=== PATIENT | male | born 1940 | race Caucasian/White ===

== ENCOUNTER 2018-12-01 04:14 | Inpatient (IN) ==
[2018-12-01] MEDS ORDERED: ASPIRIN PO ONE (04:29)
[2018-12-01] MEDS ORDERED: CARDIZEM IV ONE ×2 (04:29→06:00)
[2018-12-01] MEDS ORDERED: ASPIRIN ONE (04:31)
--- NOTE | 2018-12-01 04:41 | PROVIDER DOCUMENTATION ---
HPI-Chest Pain - General Chief Complaint: Chest Pain Stated Complaint: CHEST PAIN-HISTORY OF HEART PROBLEM Time Seen by Provider: 12/01/18 04:21 Source: patient, family Allergies/Adverse Reactions: Patient Allergies Allergy/AdvReac Type Severity Reaction Status Date / Time rosuvastatin calcium * AdvReac Severe Unknown Verified 12/01/18 04:45 [From Crestor] Mhverhi-Dlk-Jsc Reductase AdvReac Unknown Verified 12/01/18 04:45 Inhibitor Home Medications: Home Medication List Medication Instructions Recorded Confirmed Last Taken Type Aspirin 81 mg PO QPM 04/06/16 12/01/18 08/03/17 History [place]-3 Fatty Acids/Fish Oil 1 cap PO BID 04/06/16 12/01/18 08/05/17 History [[place] 3 1,000 mg Softgel] Apixaban [Eliquis] 5 mg PO BID 07/11/17 12/01/18 08/03/17 History Albuterol Sulfate Inhaler 2 puff INH Q6HR PRN 12/01/18 12/01/18 Unknown History [Ventolin Hfa] Amlodipine Besylate 1 tab PO QAM 12/01/18 12/01/18 Unknown History Fluticasone 50 Mcg Nasal [place] 1 spray INTRANASAL QAM 12/01/18 12/01/18 Unknown History [Flonase] Hydrochlorothiazide 1 tab PO QAM 12/01/18 12/01/18 Unknown History Losartan Potassium 1 tab PO BID 12/01/18 12/01/18 Unknown History Naproxen Sodium [Aleve] 1 tab PO BID PRN 12/01/18 12/01/18 Unknown History Nitroglycerin Sl [Nitroglycerin] 1 tab SUBLINGUAL DIRECTED PRN 12/01/18 12/01/18 Unknown History - History of Present Illness-CP Nature of Presenting Problem: Patient has history of paroxysmal A-Fib, though usually in NSR, takes Eliquis BID prescribed by Dr. Roy, notes acute onset of left sided "burning" chest pain on waking a little over an hour ago, followed by N/V x 1, sweating and then palpitations. CP lasted a few minutes and is gone at this time. Patient checked HR/BP and found HR to be in the 140s-150s, so he assumed he was back in AFIB and came her for treatment. Has had similar problems in the past with AFIB. Location: reports: substernal Chest Pain Radiation: reports: no radiation Quality of Pain: reports: burning Severity in ED: moderate Onset/Duration: 1 hour ago Timing: gone now, resolved prior to arrival (lasted a few minutes) Context/Activities at Onset: reports: sleep Modifying Factors: improves with: nothing Associated Symptoms: reports: diaphoresis, nausea, vomiting Nitro Today/Relief: no nitro taken today Aspirin Treatment Today: no aspirin today Prior Chest Pain/Cardiac Workup: reports: cardiac cath Similar Symptoms Previously?: Yes (with AFIB) Recently Seen Here or By Another Healthcare Provider: No (Sees Dr. Calvin Roy and PCP is Art) Review of Systems - Adult - REVIEW OF SYSTEMS - ADULT Constitutional: reports: no symptoms reported Eyes: reports: no symptoms reported Ears, Nose, Mouth & Throat: reports: no symptoms reported Cardiovascular: reports: see HPI, chest pain, irregular heart rate, palpitations . denies: edema, heart murmur, orthopnea, poor circulation, PND, syncope Respiratory: reports: no symptoms reported Gastrointestinal: reports: no symptoms reported Genitourinary: reports: no symptoms reported Musculoskeletal: reports: other (fell a few weeks ago, injuring his left calf/LE . States has been seen by Med/Surg clinic and told was a bruise/strain/cellulitis, given antibiotics and told it was not a blood clot. States still hurts, but not nearly as bad.) Integumentary: reports: no symptoms reported Neurological: reports: no symptoms reported Psychiatric: reports: no symptoms reported Endocrine: reports: no symptoms reported Hematologic/Lymphatic: reports: no symptoms reported Allergic/Immunologic: reports: no symptoms reported All Other Systems: Reviewed and Negative Past History - Adult - PAST MEDICAL HISTORY-ADULT Review of Records: reports: Old Records Reviewed, Nursing Assessment Review, Medications Reviewed, Social history reviewed & non-contributory. Major Childhood Illnesses: reports: denies history Cardiovascular: reports: cardiac disease, A-Fib, HTN, hyperlipidemia Respiratory: reports: COPD Gastrointestinal: reports: other (diverticulitis) Obstetrical/Gynecological: reports: denies history Genitourinary: reports: denies history Musculoskeletal: reports: denies history Neurological: reports: denies history Endocrine/Immune: reports: denies history Other Conditions: reports: other cancer (skin) - PRIOR SURGERIES/PROCEDURES Surgical/Procedure History: reports: appendectomy - PRIOR HOSPITALIZATIONS Prior Hospitalizations: reports: for similar symptoms - IMMUNIZATION STATUS Childhood Immunizations: See Nurse Assessment Flu Vaccine: See Nurse Assessment - FAMILY HISTORY Family History: reviewed, not pertinent - SOCIAL HISTORY Smoking: quit less than 1 year Substance Use: none/never Alcohol Use Frequency: rarely Living Situation: family Physical Exam-General - PHYSICAL EXAM-ADULT Initial Vital Signs Reviewed: Yes (Tachycardic, otherwise VSSAF) - CONSTITUTIONAL General Appearance: appears well, alert, no apparent distress - EYES Eyes: PERRL/EOMI, pink conjunctivae - HEAD, EARS, NOSE, MOUTH & THROAT HENMT: normocephalic/atraumatic, moist mucous membranes, normal ENT inspection - NECK Neck: non-tender, full range of motion, supple, normal inspection - RESPIRATORY Respiratory: chest non-tender, lungs clear, normal breath sounds, no pleuratic chest pain, no respiratory distress, no accessory muscle use - CARDIOVASCULAR Cardiovascular: normal peripheral pulses, no edema, no gallop, no JVD, no murmur , tachycardia, irregularly irregular - GASTROINTESTINAL (ABDOMEN) Abdominal Exam: normal bowel sounds, non tender, soft, no organomegaly, no pulsatile mass - LYMPHATIC Lymphatic: no adenopathy - MUSCULOSKELETAL Back Exam: normal inspection, no vertebral tenderness Extremity: normal range of motion, normal gait, normal capillary refill, calf tenderness (left side), pedal edema, swelling (2+ on right, 3+ on left). negative: deformity, erythema, inflammation, joint effusion - SKIN Integumentary: normal color, normal turgor, warm/dry - NEUROLOGIC Neurologic: trial management associate II-XII nml as tested, grossly normal, no motor/sensory deficits - PSYCHIATRIC Psych/Mental Status: normal mood/affect, normal thought content, normal thought process, oriented x 3 - HEART Score HEART Score: History: Slightly Suspicious HEART Score: ECG: Non-Specific Repolarization Disturbance/LBBB/PM HEART Score: Age: > or = 65 Years HEART Score: Risk Factors for Atherosclerotic Disease: > or = 3 Risk Factors or History of Atherosclerotic Disease HEART Score: Troponin: < or = Normal Limit (MOD Risk of MACE) Total HEART Score:: 5 Progress - PLAN OF CARE/RESULTS Progress/Plan/Lab Results: Vital Signs - 8 hr 12/01/18 04:19 12/01/18 04:24 12/01/18 04:32 Temperature 98.2 F Pulse Rate 136 H 147 H 132 H Respiratory Rate 14 17 14 Blood Pressure 128/92 128/92 111/90 O2 Sat by Pulse Oximetry 97 96 97 12/01/18 04:47 12/01/18 05:02 12/01/18 05:19 Temperature Pulse Rate 152 H 96 H 77 Respiratory Rate 26 H 17 Blood Pressure 107/83 114/73 O2 Sat by Pulse Oximetry 98 92 L Laboratory Results - last 24 hr 12/01/18 12/01/18 12/01/18 04:36 04:36 04:36 WBC 6.92 RBC 4.69 L Hgb 13.4 L Hct 41.3 L MCV 88.1 MCH 28.6 MCHC 32.4 L RDW Std Deviation 16.9 H Plt Count 197 MPV 11.8 H Immature Gran % (Auto) 0.3 Neut % (Auto) 56.8 Lymph % (Auto) 27.2 [place] % (Auto) 11.6 H Eos % (Auto) 4.0 Baso % (Auto) 0.1 Immature Gran # (Auto) 0.02 Neut # (Auto) 3.93 Lymph # (Auto) 1.88 [place] # (Auto) 0.80 H Eos # (Auto) 0.28 Baso # (Auto) 0.01 PT INR PTT (Actin FS) Sodium 139 Potassium 4.0 Chloride 100 Carbon Dioxide 32 Anion Gap 7 BUN 23 H Creatinine 1.1 Estimated GFR/1.73 m2 > 60 BUN/Creatinine Ratio 21 Glucose 126 H Calculated Osmolality 283 Calcium 9.4 Total Bilirubin 0.40 AST 46 H ALT 56 H Alkaline Phosphatase 85 Creatine Kinase 112 Troponin T Etj-G-Mpbgwgrxfnj Pept Total Protein 6.8 Albumin 4.4 Globulin 2.4 Albumin/Globulin Ratio 1.8 TSH 6.19 H 12/01/18 12/01/18 12/01/18 04:36 04:36 04:36 WBC RBC Hgb Hct MCV MCH MCHC RDW Std Deviation Plt Count MPV Immature Gran % (Auto) Neut % (Auto) Lymph % (Auto) [place] % (Auto) Eos % (Auto) Baso % (Auto) Immature Gran # (Auto) Neut # (Auto) Lymph # (Auto) [place] # (Auto) Eos # (Auto) Baso # (Auto) PT 14.7 INR 1.07 PTT (Actin FS) 32.6 Sodium Potassium Chloride Carbon Dioxide Anion Gap BUN Creatinine Estimated GFR/1.73 m2 BUN/Creatinine Ratio Glucose Calculated Osmolality Calcium Total Bilirubin AST ALT Alkaline Phosphatase Creatine Kinase Troponin T < 0.010 Tgh-G-Bzmtyudbeif Pept 35 Total Protein Albumin Globulin Albumin/Globulin Ratio TSH Orders Category Date Time Status Nursing- Obtain EKG once Care 12/01/18 04:50 Active Saline Loc NOW Care 12/01/18 04:30 Active CHEST-PORTABLE [RAD] Stat Exams 12/01/18 04:30 Taken CBC WITH ELECTRONIC DIFF [HEME] Stat Lab 12/01/18 04:36 Completed CK PROFILE [SP CHEM] Stat Lab 12/01/18 04:36 Completed CK PROFILE [SP CHEM] Stat Lab 12/01/18 06:30 Uncollected COMPREHENSIVE METABOLIC PANEL [CHEM] Stat Lab 12/01/18 04:36 Completed PRO B-NATRIURETIC PEPTIDE Stat Lab 12/01/18 04:36 Completed PROTIME WITH INR [COAG] Stat Lab 12/01/18 04:36 Completed PTT [COAG] Stat Lab 12/01/18 04:36 Completed TROPONIN T Stat Lab 12/01/18 04:36 Completed TROPONIN T Stat Lab 12/01/18 06:30 Uncollected TSH Stat Lab 12/01/18 04:36 Completed 0.9% Sodium Chloride Inj [Ns] 100 ml Med 12/01/18 06:15 Active Diltiazem [Cardizem] 125 mg IV As Directed mls/hr Aspirin Med 12/01/18 04:31 Discontinued 325 mg .ROUTE .STK-MED ONE Aspirin Med 12/01/18 04:29 Discontinued 325 mg PO NOW ONE Digoxin [Lanoxin] Med 12/01/18 05:11 Discontinued 250 microgm IV NOW ONE Diltiazem [Cardizem] Med 12/01/18 06:00 Discontinued 20 mg IV NOW ONE Diltiazem [Cardizem] Med 12/01/18 04:29 Discontinued 25 mg IV NOW ONE EKG [EKG] Stat Ther 12/01/18 04:19 Ordered EKG [EKG] Stat Ther 12/01/18 06:30 Ordered Result Diagrams: 12/01/18 04:36 12/01/18 04:36 - REASSESSMENT Reassessment #1 Time Reassessed: 04:48 Status: unchanged (Old chart and prior EKG reviewed. Last cardiology consultation/evaluation was Jun 2017, in house by Dr. Potts. Will check second CE and EKG at 2 hours) Reassessment #2 Time Reassessed: 06:05 Status: unchanged (Patient did not respond to first dose of cardizem IV and IV digoxin. Also given ASA po. Will re-bolus cardizem and start drip and admit) - EKG 1 Time of EKG reading by physician:: 04:24 EKG Read and Signed by:: Rangel Golden EKG Interpretation (*Must complete 3 of following elements*): Abnormal Rate: 138 Rhythm: Afib with RVR [place]: normal ST Wave: non-specific ST changes Prior EKG Comparison: unchanged from prior (07/12/17) - XRAY 1 XRAY Study: Chest Impression: Abnormal (Read by me at 0545, CM with increased vascular markings. Elevated left hemidaiphragm) - CONSULTS/PCP/HOSPITALIST Notification #1 *Consult/PCP/Hospitalist*: Emmett Time Discussed: 06:06 Consult Disposition: Will see in ED Departure - Departure Date of Disposition Decision: 12/01/18 Time of Disposition Decision: 06:06 DIAGNOSIS: Substernal precordial chest pain, Paroxysmal atrial fibrillation with RVR Disposition: ADMITTED INPATIENT 09 Certified Medical Emergency: Emergent Condition: Fair Referrals and Follow-Ups: Qasim Cordova DO [Primary Care Provider] - - Critical Care Note This patient required my direct & personal management of CC.: Yes Total Time (mins): 40 ([facility] system in peril) Critical Care Statement: This patient required my direct personal management to treat or rule out processes, the absence of which, could potentiallly result in sudden, clinically significant life or limb threatening deterioration. Attestation - Physician/ NAN Attestation Patient care was provided by Advanced Practice Provider:: No The physician spent face to face time with patient:: Yes Advanced Practice Provider documentation review:: Supervising physician onsite and consulted in the evaluation and care of this patient. The physician did have a face to face encounter with the patient.
[2018-12-01 04:56] LABS: BASO# 0.01 X1000 (0.0-0.2); BASO% 0.1 % (0.0-0.8); EOS# 0.28 X1000 (0.0-0.7); HEMATOCRIT 41.3 % (42.0-52.0); HEMOGLOBIN 13.4 g/dL (14.0-18.0); IMM GRAN# 0.02 X1000 (0.0-0.04); IMM GRAN% 0.3 % (0.0-0.5); LYMPH# 1.88 X1000 (1.2-3.4); LYMPH% 27.2 % (20.5-51.1); MCH 28.6 PG (27-31); MCHC 32.4 g/dL (33-37); MCV 88.1 FL (81-99); MONO% 11.6 % (1.7-9.3); MPV 11.8 FL (7.4-10.4); NEUT# 3.93 X1000 (1.4-6.5); NEUT% 56.8 % (42.2-75.2); PLT 197 X1000 (130-400); RBC 4.69 XMIL (4.7-6.1); RDW 16.9 % (11.5-14.5); WBC 6.92 X1000 (4.8-10.8)
[2018-12-01 05:05] LABS: INR 1.07; PROTIME 14.7 Seconds (11.0-16.0)
[2018-12-01 05:06] LABS: PTT 32.6 Seconds (22.3-41.8)
[2018-12-01] MEDS ORDERED: LANOXIN IV ONE (05:11)
[2018-12-01 05:17] LABS: AGAP 7; ALB/GLOB RATIO 1.8; ALBUMIN 4.4 g/dL (3.5-5.0); ALKALINE PHOSPHATASE 85 U/L (32-122); BUN 23 mg/dL (8-22); CALCIUM 9.4 mg/dL (8.8-10.2); CHLORIDE 100 mmol/L (98-107); CK PROFILE 112 U/L (24-204); COSMO 283; CREATININE 1.1 mg/dL (0.7-1.2); ESTIMATED GFR > 60; GLUCOSE 126 mg/dL (70-104); GOT 46 U/L (10-34); GPT 56 U/L (10-44); SODIUM 139 mmol/L (136-145); TCO2 32 mmol/L (25-35); TOTAL PROTEIN 6.8 g/dL (6.3-8.3)
[2018-12-01] MEDS ORDERED: CARDIZEM 125 MG in NS 100 ML IV SCH (06:15)
--- NOTE | 2018-12-01 06:37 | ED EKG INTERP ---
EKG Interpretation - EKG Time of EKG reading by physician:: 06:35 EKG Read and Signed by:: Rangel Golden EKG Interpretation (*Must complete 3 of following elements*): Abnormal Rate: 78 Rhythm: Afib, rate controlled [place]: normal QRS: other (low voltage, early transition) ST Wave: normal Prior EKG Comparison: changes noted (improved from earlier) Attestation - Physician/ NAN Attestation Patient care was provided by Advanced Practice Provider:: No The physician spent face to face time with patient:: Yes Advanced Practice Provider documentation review:: Supervising physician onsite and consulted in the evaluation and care of this patient. The physician did have a face to face encounter with the patient.
--- NOTE | 2018-12-01 06:41 | Diag Imaging Result Doc PS360 ---
CHEST-PORTABLE - 12/01/2018 INDICATION: chest pain COMPARISON: 07/13/2017 FINDINGS: There is faint infiltrate or atelectasis at the left hilum, stable from prior exams. Stable left hemidiaphragm elevation with some adjacent atelectasis. The right lung remains clear. Heart size and pulmonary vascularity is normal. IMPRESSION: Nonspecific findings. No change from prior. Electronically signed by Benny Mchugh 12/01/2018 6:39 AM
--- NOTE | 2018-12-01 07:05 | EKG Report ---
Test Performed on : 12/01/2018 06:28:13 AM Test Reason : Repeat at 0630 for CP Blood Pressure : / mmHG Vent. Rate : 078 BPM Atrial Rate : 063 BPM P-R Int : 000 ms QRS Dur : 090 ms QT Int : 366 ms P-R-T Axes : 000 -20 014 degrees QTc Int : 417 ms Atrial fibrillation. Low voltage QRS Abnormal ECG When compared with ECG of 01-DEC-2018 04:19, (Unconfirmed) Vent. rate has decreased BY 60 BPM Confirmed by Jordana POWERS, Eric Simeon ([id number]) on 12/01/2018 3:27:36 PM
--- NOTE | 2018-12-01 07:10 | EKG Report ---
Test Performed on : 12/01/2018 04:19:59 AM Test Reason : chest pain Blood Pressure : / mmHG Vent. Rate : 138 BPM Atrial Rate : 101 BPM P-R Int : 000 ms QRS Dur : 088 ms QT Int : 308 ms P-R-T Axes : 000 000 022 degrees QTc Int : 466 ms Atrial fibrillation. with rapid ventricular response. Nonspecific ST abnormality Abnormal ECG When compared with ECG of 12-JUL-2017 01:36, No significant change was found Confirmed by Jordana POWERS, Eric Simeon ([id number]) on 12/01/2018 3:27:35 PM
[2018-12-01] MEDS ORDERED: ZOFRAN IV PRN (08:22)
[2018-12-01] MEDS ORDERED: TYLENOL PO PRN (08:22)
[2018-12-01] MEDS ORDERED: ASPIRIN PO SCH ×2 (09:00→21:00)
[2018-12-01 09:23] LABS: AGAP 10; BUN 21 mg/dL (8-22); CALCIUM 9.4 mg/dL (8.8-10.2); CHLORIDE 102 mmol/L (98-107); COSMO 279; ESTIMATED GFR > 60; GLUCOSE 133 mg/dL (70-104); POTASSIUM 4.2 mmol/L (3.5-5.1); SODIUM 137 mmol/L (136-145); TCO2 25 mmol/L (25-35)
[2018-12-01] MEDS ORDERED: VENTOLIN HFA INH PRN (09:31)
[2018-12-01] MEDS ORDERED: NITROGLYCERIN SL PRN (09:31)
[2018-12-01] MEDS ORDERED: NORVASC PO SCH (09:31)
[2018-12-01] MEDS: FLONASE NAS SCH (09:59)
[2018-12-01] MEDS: ELIQUIS PO SCH ×2 (09:59→21:14)
[2018-12-01] MEDS: FISH OIL CONCENTRATE PO SCH ×2 (09:59→21:14)
[2018-12-01] MEDS ORDERED: ATROVENT NEB INH PRN (10:19)
[2018-12-01] MEDS ORDERED: CARDIZEM CD PO ONE (10:54)
--- NOTE | 2018-12-01 11:33 | HISTORY AND PHYSICAL ---
ADDENDUM: Dictating addendum to history and physical dictated by the nurse practitioner. I agree with most components of history, physical, assessment and plan. In brief, Mr. Ahn is a 78-year- old man with a past medical history of essential hypertension, coronary artery disease status post stent in about 2013, paroxysmal atrial fibrillation on home Eliquis, not on any rate control medication, COPD, who came in with chief complaints of sudden onset left-sided chest burning of about 1 hour duration associated with nausea and vomiting; 1 episode today morning with diaphoresis and palpitation. His chest pain resolved about 20 minutes after he came to the emergency room. In the emergency room, he was found to have atrial fibrillation with rapid ventricular rate with heart rate of 140s. So, hospitalist team was consulted for further management. He was given intravenous diltiazem by the time I saw him. SUBJECTIVE: At the time of my evaluation, he denies any more chest pain feeling short of breath or palpitation. He wants me to resume all of his antihypertensive medications. However, I explained to him that he is currently on diltiazem drip and I would only resume his antihypertensive medication as tolerated in the future. He did have a recent mechanical fall about a week to 10 days ago and had developed bruises of left lower extremity and was diagnosed as cellulitis outpatient and he took 4 to 5 tablets of antibiotics which were given to him by an outpatient provider. Currently, his left lower extremity pain is significantly better. VITALS: Temperature of 97.7 degrees, pulse 96, respiratory rate 20, blood pressure 140/78. He is saturating 95% on room air. PHYSICAL EXAMINATION: GENERAL: Morbidly obese, not in any acute distress. HEENT: Oral cavity is moist. LUNGS: Air entry bilaterally equal. No wheeze, rhonchi, crackles. CARDIOVASCULAR: S1, S2 normal. No murmur, rub or gallop. Irregularly irregular. ABDOMEN: Soft, nontender. He has bilateral lower extremity edema. He does have some slight tenderness of left beltran where he had a mechanical injury when he fell down. LABS: Suggestive of normocytic anemia, normal platelet count, elevated D-dimer which could be in the setting of his Eliquis use. Normal electrolytes. Normal kidney function. Troponins have been negative x3. ASSESSMENT: His TSH is high. Free T4 is normal. EKG had atrial fibrillation with rapid ventricular rate. ASSESSMENT AND PLAN: 1. Paroxysmal atrial fibrillation with rapid ventricular rate. Continue intravenous diltiazem drip and home Eliquis. I will appreciate Cardiology about need for sotalol versus amiodarone drip or cardioversion in future. He does have history of structural heart disease. 2. Coronary artery disease status post stent about 4 to 5 years ago. Continue him on his home aspirin, omega-3 fatty acids. He, in the past, did not tolerate beta haider because of fatigue. He is not listed to be taking KALEE inhibitors and he had listed allergy to statins. 3. Essential hypertension. I will resume his home hydrochlorothiazide, losartan, and amlodipine as tolerated in the future. 4. Prior history of about 40 pack-year smoking history, which he quit about 5 years ago and documented history of chronic obstructive pulmonary disease. Continue fluticasone nasal spray. I will change his albuterol to ipratropium considering his current atrial fibrillation. DISPOSITION: I will admit the patient and monitor him in [facility]. I will appreciate Cardiology recommendation about need for chemical versus electrical cardioversion. Plan of care discussed with him. All of his questions have been answered. cc: Amish Solorio MD
--- NOTE | 2018-12-01 11:34 | HISTORY AND PHYSICAL ---
ASSEMBLER SURGICAL GARMENT: Dr. Cordova. DICTATING FOR: Dr. Solorio. CHIEF COMPLAINT: Chest pain. HISTORY OF PRESENT ILLNESS: This is a 78-year-old male, who presents to the [facility] ER with chest pain. States that about 3:30 this morning, he woke up with a burning ache across his chest that goes across the shoulder, and states that he feels like a fatigue across his shoulder area. States he had this pain about a year and a half ago, and at that time he was in atrial fibrillation. He states that when he felt this pain, he woke up and grabbed his pulse oximeter that he has at home. He noted his heart rate to be in the 140s, and decided to come to the hospital at that time. The patient states that he does not have any diaphoresis, nausea or vomiting with this pain, or any other symptoms, except fatigue and pain, and burning and aching. When the patient arrived at the ER, his heart rate was noted to be in the 140s, atrial fibrillation. He was subsequently started on a Cardizem drip. Now his heart rate is in the 80s atrial fibrillation. He is on a Cardizem drip at 10. He denies any chest pain at this time. The patient does state that he fell and hit his left lower leg about 3 weeks ago. His activity aide did give him an antibiotic sample, a couple pills. He did give him a prescription for that sample, but he was unable to afford the prescription. He did go back to the activity aide. The activity aide gave him about 4 more pills, so he did take a total of about 6 tablets. Left lower leg is edematous. There is a knot noted below the knee area. He states that this edema is better than it what was when he first hit the leg because it was worse, but it is painful to touch. PAST MEDICAL HISTORY: Coronary artery disease, chronic atrial fibrillation on anticoagulation, obstructive sleep apnea on BiPAP, hematuria and a cystoscopy from Dr. Correa, hypertension, hyperlipidemia, COPD. PAST SURGICAL HISTORY: He had a colon resection from diverticulitis, coronary artery stenting x1, an appendectomy, and tonsillectomy. FAMILY HISTORY: Not significant at this time. SOCIAL HISTORY: He lives at home with his . He is retired. He denies any smoking. He occasionally drinks a little alcohol, not very often. He denies any illicit drug abuse. ALLERGIES: Crestor. MEDICATIONS: Hydrochlorothiazide 12.5 mg p.o. q.a.m., losartan potassium 50 mg p.o. b.i.d., Aleve 220 mg p.o. b.i.d., albuterol sulfate inhaler 2 puffs q. 6 hours p.r.n., amlodipine besylate 5 mg p.o. q.a.m., Eliquis 5 mg p.o. b.i.d., aspirin 81 mg p.o. q.p.m., Flonase 1 spray q.a.m., nitroglycerin 0.4 mg sublingual as directed, [place]-3 one capsule p.o. b.i.d. LABS AND DIAGNOSTICS: White blood cell count 6.92, hemoglobin 13.4, hematocrit 41.3, platelet count 197. PT 14.1, INR 1.07, PTT 32.6, D-dimer 1.15. Sodium 137, potassium 4.2. BUN 21, creatinine 1.0. GFR greater than 60, glucose 133, calcium 9.4, magnesium 2.0, bilirubin 0.4. AST is 46, ALT is 56, alkaline phosphatase is 85, creatine kinase is 105. Troponin is less than 0.01. ProBNP is 35. TSH is 6.19, free T4 is 1.05. EKG on admission to the ER shows a heart rate of 138, atrial fib with RVR. This was done at 4:19 a.m. EKG done at 6:30 a.m. shows atrial fib at a rate of 78. Chest x-ray done at 4:30 in the morning in the ER shows nonspecific findings. REVIEW OF SYSTEMS: A 12-point review of systems was performed; all is negative, except what is stated above in the HPI. PHYSICAL EXAM: VITAL SIGNS: Temperature 97.7 degrees, pulse rate 96, respiratory rate 20, blood pressure 143/78, O2 saturations 95% on room air. Weight is 247 pounds. Height is 5 feet 7 inches. GENERAL: This is a well-nourished, well-developed, 78-year-old man who is in no acute distress. He is lying in the ER stretcher. HEENT: Head is atraumatic and normocephalic. His pupils are equal, round, reactive to light. Mucous membranes are moist. NECK: Supple. No lymphadenopathy. Trachea is midline. No JVD. CV: No murmurs, gallops or rubs appreciated. Regular rate is atrial fib on the monitor. RESPIRATORY: Lung sounds are clear. Equal chest excursions. Respirations are nonlabored with no accessory muscle usage. GI/ABDOMEN: Soft, nontender, nondistended. Bowel sounds are present. NEURO: Awake, alert, and oriented. Follows all commands. Cranial nerves intact. MUSCULOSKELETAL: Full distal strength noted. No abnormalities. No deformities. EXTREMITIES: No clubbing, cyanosis. There is edema noted to the left lower extremities. Below the knee, there is a small area of edema, which that is warm and tender to the touch. DP and PT pulses are present. SKIN: Warm, dry, intact. Bruising noted to the left lower extremity [id number]. ASSESSMENT: 1. Atrial fibrillation with rapid ventricular response. 2. Hypertension. 3. Coronary artery disease. 4. Hyperlipidemia. 5. Chronic obstructive pulmonary disease. 6. Obstructive sleep apnea. Wears BiPAP. 7. Hypothyroidism. PLAN: We will admit this patient to the CIC unit. Continue the patient on a Cardizem drip. Consult Cardiology. Obtain labs in the morning on this patient. Place the patient on transportation economics teacher. Repeat chest x-ray in the morning. Restart Home Medications. Dictated by VALERIY Khan for Amish Solorio MD cc: MD Juan Antonio Montague MD I agree with most components of history, physical, assessment and plan. A separate addendum has been dictated. RICH
--- NOTE | 2018-12-01 11:46 | CARDIOLOGY CONSULTATION ---
DATE: 12/01/2018 REASON FOR CONSULTATION: Cardiology was consulted for atrial fibrillation. HISTORY OF PRESENT ILLNESS: Mr. Francis Ahn is a 78-year-old gentleman who has paroxysmal atrial fibrillation, he is on anticoagulation therapy, has known coronary artery disease, comes with complaints of having chest discomfort, which lasted for about 30 minutes, associated with palpitations. He came to the emergency room. He was noted to be in atrial fibrillation with rapid ventricular rate, started on a Cardizem drip, and his cardiac enzymes are negative. Prior to this, he has been taking his medications regularly. In the past, he had been on beta-blockers, which causes significant amount of fatigue, which subsequently was stopped. Palpitations are not associated with any syncope. There is no history of orthopnea. He has chronic shortness of breath, which has been stable. He is on inhalers. He also has obstructive sleep apnea. He does not complain of any bleeding diathesis. REVIEW OF SYSTEMS: A 14-point review of systems was done. Gastrointestinal: There is no history of nausea, vomiting, diarrhea. There is no history of hematemesis or melena. Central Nervous System: No focal weakness to suggest CVA or TIA. Genitourinary: There is no dysuria. PAST MEDICAL HISTORY: 1. Coronary artery disease, status post stent placement, drug-eluting to the distal circumflex artery in 2011. Subsequent cardiac catheterization in 2014 revealed patent stent. 2. Paroxysmal atrial fibrillation. 3. History of pneumonia in 2018. 4. History of diastolic heart failure. 5. Hypertension. 6. Hyperlipidemia. 7. Tobacco abuse. 8. Renal insufficiency. 9. Obstructive sleep apnea. 10. History of skin neoplasm. HOME MEDICATIONS: Include aspirin 81 mg a day, Eliquis 5 mg b.i.d., amlodipine 5 mg a day, hydrochlorothiazide 12.5, losartan 50, inhalers, Naprosyn p.r.n. ALLERGIES: He is allergic to lovastatin and HMG-CoA inhibitors. PHYSICAL EXAMINATION: Vital Signs: Blood pressure was 126/69. Cardiovascular: Normal jugular venous pressure. First and second heart sounds were heard. There was no S3 gallop. Respiratory: Distant breath sounds. There were no crepitations or rhonchi. Abdomen: Soft, obese, nontender. There was no guarding or rigidity. Bowel sounds were heard. Central Nervous System: Alert and oriented. Was moving all 4 extremities. Extremities: No pedal edema. HEENT: Atraumatic, normocephalic. Pupils were equal and reacting to light. IMAGING AND LABORATORY DATA: Cardiac enzymes were negative. Sodium 137, potassium 4.2, BUN 21, creatinine 1. Hemoglobin 13.4, hematocrit 41, platelet count of 197. Chest x-ray: Nonspecific changes. No change from prior. ASSESSMENT AND PLAN: Mr. Francis Ahn is a 78-year-old gentleman with history of coronary artery disease, paroxysmal atrial fibrillation, anticoagulation therapy, hypertension, chronic obstructive pulmonary disease, sleep apnea, who comes with complaints of having chest pain with palpitations. He was in atrial fibrillation. Currently, he is on a Cardizem drip. RECOMMENDATIONS: 1. In the past, he was tried on rate control with beta blockers. He did not tolerate that. It caused significant fatigue. Will discontinue the amlodipine, and put him on Cardizem CD 240 mg a day. Will discontinue the Cardizem drip. 2. He has had coronary artery disease, stent placement to the circumflex artery. Last cardiac catheterization was in 2014 per records, which revealed patent stent. He does not want to undergo the Cardiolite stress test. Cardiac enzymes were negative. We will set him up an outpatient appointment to follow up with Dr. Roy. 3. Anticoagulation therapy. He is on aspirin and Eliquis given his CAD and paroxysmal atrial fibrillation. We will continue that. 4. Hypertension. Change of medications as above. Thank you for the consult. Will follow hospital course. cc: Juan Antonio Potts MD
--- NOTE | 2018-12-01 13:09 | EKG Report ---
Test Performed on : 12/01/2018 12:21:12 PM Test Reason : Afib VS SR Blood Pressure : / mmHG Vent. Rate : 052 BPM Atrial Rate : 052 BPM P-R Int : 146 ms QRS Dur : 092 ms QT Int : 412 ms P-R-T Axes : 028 -08 015 degrees QTc Int : 383 ms Sinus bradycardia. Low voltage QRS Borderline ECG When compared with ECG of 01-DEC-2018 06:28, (Unconfirmed) Sinus rhythm. has replaced Atrial fibrillation. Vent. rate has decreased BY 26 BPM Confirmed by Jordana POWERS, Eric Simeon ([id number]) on 12/01/2018 3:28:11 PM
[2018-12-02 05:43] LABS: BASO# 0.03 X1000 (0.0-0.2); BASO% 0.4 % (0.0-0.8); EOS# 0.27 X1000 (0.0-0.7); EOS% 3.9 % (0.0-10.0); HEMATOCRIT 38.5 % (42.0-52.0); HEMOGLOBIN 12.3 g/dL (14.0-18.0); LYMPH# 1.53 X1000 (1.2-3.4); MCH 28.7 PG (27-31); MCHC 31.9 g/dL (33-37); MCV 89.7 FL (81-99); MONO# 0.85 X1000 (0.11-0.59); MONO% 12.2 % (1.7-9.3); MPV 11.8 FL (7.4-10.4); NEUT# 4.26 X1000 (1.4-6.5); NEUT% 61.5 % (42.2-75.2); PLT 197 X1000 (130-400); RBC 4.29 XMIL (4.7-6.1); RDW 16.8 % (11.5-14.5); WBC 6.94 X1000 (4.8-10.8)
[2018-12-02 06:04] LABS: CHOLESTEROL 164 mg/dL (0-200); HDL 27 mg/dL (35-55); LDL 101 mg/dL; TRIGLYCERIDES 180 mg/dL (39-160); VLDL 36 mg/dL
[2018-12-02] MEDS ORDERED: PRILOSEC PO SCH (07:00)
--- NOTE | 2018-12-02 07:13 | EKG Report ---
Test Performed on : 12/02/2018 06:53:40 AM Test Reason : afib Blood Pressure : / mmHG Vent. Rate : 049 BPM Atrial Rate : 049 BPM P-R Int : 158 ms QRS Dur : 088 ms QT Int : 436 ms P-R-T Axes : 052 027 051 degrees QTc Int : 393 ms Sinus bradycardia. Low voltage QRS Borderline ECG When compared with ECG of 01-DEC-2018 12:21, No significant change was found Confirmed by Jordana POWERS, Eric Simeon ([id number]) on 12/02/2018 1:41:59 PM
[2018-12-02 07:52] VITALS: BP 161/73
[2018-12-02] MEDS: FISH OIL CONCENTRATE PO SCH (08:08)
[2018-12-02] MEDS: ELIQUIS PO SCH (08:08)
[2018-12-02] MEDS: FLONASE NAS SCH (08:08)
[2018-12-02] MEDS ORDERED: CARDIZEM CD PO SCH (10:45)
--- NOTE | 2018-12-03 08:10 | DISCHARGE SUMMARY ---
ADMISSION DATE: 12/01/2018 DISCHARGE DATE: 12/02/2018 DISPOSITION: Home. FOLLOW-UP: 1. Dr. Cordova. 2. Dr. Roy. CONSULTATIONS DURING ADMISSION: Cardiology was consulted. Patient was seen by Dr. Potts. INVASIVE PROCEDURES DONE DURING ADMISSION: None. IMAGING STUDIES OF SIGNIFICANCE: 1. A chest x-ray showed nonspecific findings. 2. Multiple EKGs were done. The very first one did show atrial fibrillation with rapid ventricular response. Subsequent one done this morning shows atrial fibrillation but rate controlled. DISCHARGE MEDICATIONS: 1. Aspirin 81 mg daily. 2. Apixaban 5 mg b.i.d. 3. Hydrochlorothiazide 12.5 mg p.o. daily. 4. Losartan 50 mg b.i.d. 5. Diltiazem CD 240 p.o. daily. PRESENTING COMPLAINT: Chest discomfort. HISTORY OF PRESENTING COMPLAINT: Mr. Ahn is a 78-year-old gentleman with history of coronary artery disease, chronic atrial fibrillation, and obstructive sleep apnea, who came to the emergency department because of chest discomfort, and was found to be in atrial fibrillation RVR. The patient was treated in the emergency department, and was admitted for further medical care. HOSPITAL COURSE: Mr. Ahn was admitted to [facility], and was started on Cardizem drip. His heart rate continued to improve over the course of the short hospital course. Cardiology was consulted. Patient was seen by Dr. Potts. The patient was started on p.o. Cardizem. His heart rate has been fairly stable since yesterday. Cardiology recommends that he can be discharged, and they will follow up with him on outpatient base. I understand they have had multiple attempts to do an ischemic workup on him, but he is very resistant to that idea. Cardiology will explore that more with him on outpatient basis. Today, this morning Mr. Ahn is clinically stable. His current vitals blood pressure is 161/73, pulse of 67, respirations 18, and temperature 98.2 degrees. The patient is saturating 96% on room air. Mr. Ahn is clinically stable for discharge. DISCHARGE DIAGNOSES: 1. Chronic atrial fibrillation with rapid ventricular rate on presentation. His rate is now better controlled. 2. History of coronary artery disease status post stents about 4 years ago. 3. Essential hypertension. 4. History of previous smoker. 5. Obesity with BMI of 38.2. 6. Mild dyslipidemia. cc: MD Qasim Mcallister DO Dr. Johnson MTDD
== END 2018-12-02 11:48 | disposition home or self-care (01) | DRG 309 ==
LOC: ED 04:14 → 3S 08:56 → SUATTDRO 08:56 → 3S 14:23
PROVIDERS: ATTEND Internal Medicine
CPT/HCPCS: 71010; 71045; 80048; 80053; 80061; 82550; 83735; 83880; 84439; 84443; 84484; 85025; 85379; 85610; 85730; 93005; 93010; 94761; 96365; 96366; 96375; 96376; 99285; 99291; A9270; J1160